=== PATIENT | female | born 1955 | race Caucasian/White ===

== ENCOUNTER → 2018-03-31 | Outpatient (CLI) | payer BC | LOC: BMCIMAGING 15:34 | PROVIDERS: ATTEND Internal Medicine Rheumatology | DX: M79.641 Pain in right hand (principal); M79.642 Pain in left hand; M06.071 Rheumatoid arthritis without rheumatoid factor, right ankle and foot; M06.072 Rheumatoid arthritis without rheumatoid factor, left ankle and foot; M20.11 Hallux valgus (acquired), right foot; M20.12 Hallux valgus (acquired), left foot ==

== ENCOUNTER → 2019-04-06 | Outpatient (CLI) | payer OTHER | LOC: CIMAGING 07:24 ==